=== PATIENT | female | born 1990 | race Caucasian/White ===

== ENCOUNTER 2024-10-06 07:39 | Inpatient (IN) | payer MEDICAID ==
[2024-10-06] MEDS ORDERED: BRETHINE 1 MG/ML SQ PRN (20:00)
[2024-10-06] MEDS ORDERED: STADOL 2 MG IV PRN (20:00)
[2024-10-06] MEDS ORDERED: TYLENOL EXTRA STRENGTH 500 MG PO PRN (20:00)
[2024-10-06] MEDS ORDERED: Zofran 4 MG/2 ML VIAL IV PRN (20:00)
[2024-10-06] MEDS ORDERED: Nubain 10 MG/ML IV PRN (20:00)
[2024-10-06 20:22] LABS: Absolute Neutrophil Ct (ANC) 8.05 x10^3/uL (1.56-6.13); BASOPHIL % 0.3 % (0.1-1.2); Basophil (Absolute #) 0.03 x10^3/uL (0.01-0.08); Eosinophil % 1.8 % (0.7-5.8); Eosinophil (Absolute #) 0.21 x10^3/uL (0.04-0.36); Hematocrit 38.2 % (34.1-44.9); Hemoglobin 12.9 g/dL (11.2-15.7); IMMATURE GRAN # 0.06 x10^3u/L (0.001-0.031); IMMATURE GRAN % 0.5 % (0.001-0.429); Lymphocyte (Absolute #) 2.23 x10^3/uL (1.18-3.74); Lymphocytes % 19.5 % (19.3-51.7); Mean Cell Volume 90.3 fL (79.4-94.8); Mean Corpuscular Hemoglobin 30.5 pg (25.6-32.2); Mean Corpuscular Hgb Concent. 33.8 g/dL (32.2-35.5); Mean Platelet Volume 9.5 fL (9.4-12.3); Monocyte (Absolute #) 0.86 x10^3/uL (0.24-0.86); Monocytes % 7.5 % (4.7-12.5); Neutrophil % 70.4 % (34.0-71.1); Platelet Count 222 x10^3/uL (182-369); Red Blood Count 4.23 x10^6/uL (3.93-5.22); Red Cell Distribution Width 13.7 % (11.7-14.4); White Blood Count 11.4 x10^3/uL (3.98-10.04)
[2024-10-06 20:31] LABS: Appearance Clear (Clear); Bacteria None Seen /HPF (None Seen); Bilirubin Negative (Negative); Blood Negative (Negative); Epithelial Cells None Seen /HPF (None Seen); Glucose, Urine Negative (Negative); Hyaline Casts NONE SEEN /LPF (0-2); Ketones Negative (Negative); Leukocyte Esterase Small (Negative); Nitrite Negative (Negative); Ph 6.5 (4.6-8.0); Protein,Urine Dip Negative (Negative); RBC 0-2 /HPF (0-5); Urobilinogen 0.2 mg/dL (0.2)
[2024-10-06 20:39] LABS: Amphetamine,Urine NEGATIVE (NEGATIVE); Barbiturate,Urine NEGATIVE (NEGATIVE); Benzodiazepine,Urine NEGATIVE (NEGATIVE); Cocaine,Urine NEGATIVE (NEGATIVE); Methadone,Urine NEGATIVE (NEGATIVE); Opiate,Urine NEGATIVE (NEGATIVE); PCP,Urine NEGATIVE (NEGATIVE); THC,Urine NEGATIVE (NEGATIVE)
[2024-10-06] MEDS: Lactated Ringers 1,000 ML IV SCH (20:50)
[2024-10-06] MEDS: PITOCIN 30 UNITS/ LR 500 ML 30 UNITS/500 ML PLAST..BAG IV SCH (20:51)
[2024-10-06 21:23] LABS: ABO TYPING A; RH TYPING NEGATIVE
[2024-10-06] MEDS ORDERED: Ephedrine Sulfate 50 MG/ML IV PRN (21:44)
[2024-10-06] MEDS: FENTANYL 2 MCG-BUPIV 0.125%-NS 250 ML Epidur 250 ML EPIDURAL SCH (22:09)
[2024-10-06] MEDS: Lactated Ringers 1,000 ML IV ONE (22:35)
[2024-10-07 00:21] LABS: Antibody Screen POSITIVE (NEGATIVE)
[2024-10-07] MEDS ORDERED: PITOCIN 30 UNITS/ LR 500 ML 30 UNITS/500 ML PLAST..BAG IV SCH (07:00)
[2024-10-07] MEDS ORDERED: XYLOCAINE 1% HCL 20 ML MDV IJ PRN (07:00)
[2024-10-07] MEDS ORDERED: Dulcolax 10 MG SUPP PR PRN (11:57)
[2024-10-07] MEDS ORDERED: Mylicon 80MG PO PRN (11:57)
[2024-10-07] MEDS ORDERED: Anucort-HC SUPPOSITORY PR PRN (11:57)
[2024-10-07] MEDS ORDERED: CORTISONE 1% CREAM TP PRN (11:57)
[2024-10-07] MEDS: TUCKS TP PRN (13:44)
[2024-10-07] MEDS: Dermoplast Spray TP PRN (13:44)
[2024-10-07] MEDS: LANSINOH 40 GM TOP PRN (13:44)
[2024-10-07] MEDS: MOTRIN 400 MG PO PRN (14:03)
[2024-10-07] MEDS: TYLENOL EXTRA STRENGTH 500 MG PO PRN (17:20)
[2024-10-07 19:21] VITALS: RESP 18; O2SAT 99
[2024-10-08] MEDS: Docusate Sodium 100 MG PO SCH (00:25)
[2024-10-08 05:41] LABS: Absolute Neutrophil Ct (ANC) 7.37 x10^3/uL (1.56-6.13); BASOPHIL % 0.4 % (0.1-1.2); Basophil (Absolute #) 0.05 x10^3/uL (0.01-0.08); Eosinophil % 3.1 % (0.7-5.8); Eosinophil (Absolute #) 0.36 x10^3/uL (0.04-0.36); Hematocrit 35.1 % (34.1-44.9); Hemoglobin 12.1 g/dL (11.2-15.7); IMMATURE GRAN # 0.07 x10^3u/L (0.001-0.031); IMMATURE GRAN % 0.6 % (0.001-0.429); Lymphocytes % 24.3 % (19.3-51.7); Mean Cell Volume 91.9 fL (79.4-94.8); Mean Corpuscular Hemoglobin 31.7 pg (25.6-32.2); Mean Corpuscular Hgb Concent. 34.5 g/dL (32.2-35.5); Mean Platelet Volume 9.5 fL (9.4-12.3); Monocyte (Absolute #) 0.89 x10^3/uL (0.24-0.86); Monocytes % 7.7 % (4.7-12.5); Neutrophil % 63.9 % (34.0-71.1); Platelet Count 201 x10^3/uL (182-369); Red Blood Count 3.82 x10^6/uL (3.93-5.22); Red Cell Distribution Width 13.9 % (11.7-14.4); White Blood Count 11.5 x10^3/uL (3.98-10.04)
--- NOTE | 2024-10-08 07:23 | PCM.NOTE ---
Date and Time: 10/08/24721 Subjective Assessment: ppd 1 sp pt resting in bed and doing well without complaints. able to ambulate and tolerate diet vss afebrile abd; soft uterus; firm lochia;m ild hgb; 12 a/p sp ppd 1 dc home tomorrow fu office 3 wks Objective Data Vital Signs: Vital Signs - 24 hr Temp Pulse Resp BP BP Pulse Ox 10/08/24 01:00 97.7 F 82 18 134/72 99 10/07/24 19:00 97.5 F 85 18 132/68 99 10/07/24 17:00 98.9 F 78 14 117/66 97 10/07/24 13:30 92 H 14 120/66 98 10/07/24 12:30 89 14 122/55 100 10/07/24 12:00 83 14 132/67 100 10/07/24 11:45 85 14 117/65 99 10/07/24 11:30 82 14 112/62 99 10/07/24 11:15 104 H 14 120/65 97 10/07/24 10:45 83 16 115/68 100 10/07/24 10:30 87 14 124/72 100 10/07/24 10:15 76 16 123/78 100 10/07/24 10:00 85 14 122/70 99 10/07/24 09:45 79 14 111/64 99 10/07/24 09:30 70 14 114/61 98 10/07/24 09:15 75 14 114/61 98 10/07/24 09:00 72 14 115/67 100 10/07/24 08:45 79 14 111/64 99 10/07/24 08:30 76 14 110/64 98 10/07/24 08:15 75 14 116/68 100 10/07/24 08:00 82 14 121/69 117/67 99 10/07/24 07:45 75 20 117/67 100 Pain Assessment - Last Documented Pain Intensity 0 Pain Scale Used 0-10 Pain Scale Intake and Output: Intake & Output 10/05/24 10/06/24 10/07/24 10/08/24 11:59 11:59 11:59 11:59 Intake Total 2804 1500 Output Total 1225 Balance 1579 1500 Weight 68.946 kg Lab Results: Lab Results-Last 24 Hours 10/07/24 10/08/24 Range/Units 12:52 05:39 WBC 11.5 H (3.98-10.04) x10^3/uL RBC 3.82 L (3.93-5.22) x10^6/uL Hgb 12.1 (11.2-15.7) g/dL Hct 35.1 (34.1-44.9) % MCV 91.9 (79.4-94.8) fL MCH 31.7 (25.6-32.2) pg MCHC 34.5 (32.2-35.5) g/dL RDW 13.9 (11.7-14.4) % Plt Count 201 (182-369) x10^3/uL MPV 9.5 (9.4-12.3) fL Gran % 63.9 (34.0-71.1) % Immature Gran % (Auto) 0.6 H (0.001-0.429) % Nucleat RBC Rel Count 0.0 (0.00-0.2) % Eos # (Auto) 0.36 (0.04-0.36) x10^3/uL Immature Gran # (Auto) 0.07 H (0.001-0.031) x10^3u/L Absolute Lymphs (auto) 2.80 (1.18-3.74) x10^3/uL Absolute Monos (auto) 0.89 H (0.24-0.86) x10^3/uL Absolute Nucleated RBC 0.00 (0.00-0.012) x10^3u/L Lymphocytes % 24.3 (19.3-51.7) % Monocytes % 7.7 (4.7-12.5) % Eosinophils % 3.1 (0.7-5.8) % Basophils % 0.4 (0.1-1.2) % Absolute Granulocytes 7.37 H (1.56-6.13) x10^3/uL Basophils # 0.05 (0.01-0.08) x10^3/uL Screen SEE SEPARATE REPORT Multi-Disciplinary Progress Notes: Multi-Disciplinary Progress Notes 10/07/24 11:32 Respiratory Note by Sabina Michael 1030 STANDBY FOR DELIVERY PER PROTOCOL . NO COMPLICATIONS Initialized on 10/07/24 11:32 - END OF NOTE Assessment/Plan (1) Vaginal delivery Current Visit: Yes Status: Acute Code(s): O80 - ENCOUNTER FOR FULL-TERM UNCOMPLICATED DELIVERY
--- NOTE | 2024-10-08 07:27 | PCM.DS ---
Discharge Summary Date of Admission: 10/07/24 07:39 Admitting Physician: HALLE FUCHS DO Primary Care Provider: NO FAMILY DOCTOR Allergies Allergies No Known Drug Allergies Allergy (Unverified 10/06/24 20:48) Hospital Summary - Hospital Course Hospital Course: pt admitted on oct 06 for low dose pitocin at 39 wks gestation and subsequently delivered on oct 07 live baby boy without complication with small midline tear repaired with 2-0 chromic suture. during visit pt was able to ambulate and tolerate diet with stable vitals and stable hgb at 12. pt is now stable for discharge on oct 08 as pt desires to be discharged home today and was advised to fu in office in 3 wks for care. all questions answered to her satisfaction. - Vitals & Intake/Output Vital Signs: Vital Signs Temperature 97.7 F 10/08/24 01:00 Pulse Rate 82 10/08/24 01:00 Respiratory Rate 18 10/08/24 01:00 Blood Pressure 134/72 10/08/24 01:00 O2 Sat by Pulse Oximetry 99 10/08/24 01:00 Intake & Output: Intake & Output 10/05/24 10/06/24 10/07/24 10/08/24 11:59 11:59 11:59 11:59 Intake Total 2804 1500 Output Total 1225 Balance 1579 1500 Weight 68.946 kg - Lab Result Diagrams: 10/08/24 05:39 Lab Results-Last 24 Hrs: Lab Results-Last 24 Hours 10/07/24 10/08/24 Range/Units 12:52 05:39 WBC 11.5 H (3.98-10.04) x10^3/uL RBC 3.82 L (3.93-5.22) x10^6/uL Hgb 12.1 (11.2-15.7) g/dL Hct 35.1 (34.1-44.9) % MCV 91.9 (79.4-94.8) fL MCH 31.7 (25.6-32.2) pg MCHC 34.5 (32.2-35.5) g/dL RDW 13.9 (11.7-14.4) % Plt Count 201 (182-369) x10^3/uL MPV 9.5 (9.4-12.3) fL Gran % 63.9 (34.0-71.1) % Immature Gran % (Auto) 0.6 H (0.001-0.429) % Nucleat RBC Rel Count 0.0 (0.00-0.2) % Eos # (Auto) 0.36 (0.04-0.36) x10^3/uL Immature Gran # (Auto) 0.07 H (0.001-0.031) x10^3u/L Absolute Lymphs (auto) 2.80 (1.18-3.74) x10^3/uL Absolute Monos (auto) 0.89 H (0.24-0.86) x10^3/uL Absolute Nucleated RBC 0.00 (0.00-0.012) x10^3u/L Lymphocytes % 24.3 (19.3-51.7) % Monocytes % 7.7 (4.7-12.5) % Eosinophils % 3.1 (0.7-5.8) % Basophils % 0.4 (0.1-1.2) % Absolute Granulocytes 7.37 H (1.56-6.13) x10^3/uL Basophils # 0.05 (0.01-0.08) x10^3/uL Screen SEE SEPARATE REPORT - Procedures and Test Procedures and Tests throughout Hospitalization: Therapy Orders & Screens 10/07/24 11:31 Standby ROUTINE Comment: Diagnosis: IUP, INDUCTION LOW DOSE PITOCIN Final Diagnosis/Problem List - Final Discharge Diagnosis/Problem (1) Vaginal delivery Current Visit: Yes Status: Acute Code(s): O80 - ENCOUNTER FOR FULL-TERM UNCOMPLICATED DELIVERY - Discharge Disposition: Home, Self-Care Condition: Stable Prescriptions: No Action No122/Iron/Folic Acid [ Multi Tablet] 1 each PO DAILY Ferrous Gluconate [Iron] 18 mg PO DAILY Follow up with: DOCTOR,NO FAMILY [Primary Care Provider] - HALLE FUCHS DO [ACTIVE STAFF] - 3 weeks (should call me for any issues that may arise after discharge)
[2024-10-08 09:06] VITALS: TEMP 98.3
[2024-10-08 09:24] LABS: RPR Non Reactive (Non Reactive)
[2024-10-08] MEDS: FERREX 150 PO SCH (09:53)
[2024-10-08] MEDS: Rhogam Plus 300 MCG IM ONE (09:54)
[2024-10-08 18:36] VITALS: BP 126/81; PULSE 76
== END 2024-10-08 18:20 | disposition home or self-care (01) | DRG 807 ==
LOC: OB 07:39 → OBSVTOIN 10-07 07:39
PROVIDERS: ADMIT Obstetrics & Gynecology; ATTEND Obstetrics & Gynecology
PROC: 10E0XZZ Delivery of Products of Conception, External Approach (ICD-10-PCS; principal; 2024-10-07)
PROC: 0KQM0ZZ Repair Perineum Muscle, Open Approach (ICD-10-PCS; 2024-10-07)
DX: O70.1 Second degree perineal laceration during delivery (principal); Z37.0 Single live birth; Z3A.39 39 weeks gestation of pregnancy
CPT/HCPCS: 36415; 59025; 59425; 80307; 81001; 81002; 85025; 85461; 86592; 86850; 86870; 86900; 86901; 87086; 94799; 96372; 99213; G0378; G0379; J2590; J2790; A9270-GY